=== PATIENT | male | born 2000 | race Caucasian/White ===

== ENCOUNTER 2021-06-27 19:00 | Emergency (ER) | payer OTHER ==
[2021-06-27 19:15] VITALS: BP 131/78; PULSE 82; TEMP 98.7; BMI 23.8
[2021-06-27] MEDS ORDERED: ACETAMINOPHEN 500 MG TABLET (FP) PO ONE (20:57)
[2021-06-27] MEDS ORDERED: ACETAMINOPHEN 325 MG TABLET (FP) ONE (21:03)
[2021-06-27 21:21] LABS: URINE APPEARANCE CLEAR; URINE BILIRUBIN NEGATIVE (NEGATIVE); URINE COLOR YELLOW; URINE GLUCOSE (UA) NEGATIVE (NEGATIVE); URINE KETONE NEGATIVE (NEGATIVE); URINE LEUK ESTERASE NEGATIVE (NEGATIVE); URINE NITRITE NEGATIVE (NEGATIVE); URINE PROTEIN NEGATIVE (NEGATIVE)
== END 2021-06-27 22:33 | disposition home or self-care (01) ==
LOC: JER 19:00
DX: R10.84 Generalized abdominal pain (principal)
CPT/HCPCS: 36415; 81003; 87086; 87491; 87591; 87661; 99283-25